=== PATIENT | female | born 1975 | race Caucasian/White ===

== ENCOUNTER 2017-02-04 22:13 | Inpatient (IN) | payer MEDICAID ==
[~2017-02-04] VITALS: Ht 142.2 cm; Wt 60.8 kg
[~2017-02-04 22:13] MED LIST: ASPI325T80 PO; ATOR40TA78 PO; CLOP75TA PO; LIPA1CAP PO; METF500T4 PO; METO25TA35 PO; PIOG15TA4 PO
[2017-02-04] MEDS ORDERED: INSU100I34 SQ (22:34)
[2017-02-04 22:44] LABS: HEMATOCRIT 40.4 % (34.6-47.8); HEMOGLOBIN 13.5 g/dL (11.7-16.4); WHITE BLOOD COUNT 10.9 x10^3/uL (3.4-10)
[2017-02-04 22:57] LABS: ASPARTATE AMINO TRANSFERASE 14 U/L (15-37); BLOOD UREA NITROGEN 20 mg/dL (7-18)
[2017-02-04] MEDS ORDERED: ONDANSETRON 2MG/ML, 2ML ONE (22:59)
[2017-02-04] MEDS ORDERED: SODIUM CHLORIDE FLUSH 10ML SYR IVF ONE (23:00)
[2017-02-04] MEDS ORDERED: LORazepam 2 MG/ML, 1ML IVPush ONE (23:00)
[2017-02-04] MEDS ORDERED: SODIUM CHLORIDE 0.9% 1,000ML IVBOLUS ONE (23:00)
[2017-02-04] MEDS ORDERED: ONDANSETRON 2MG/ML, 2ML IVPush ONE (23:00)
[2017-02-04] MEDS ORDERED: LORazepam 2 MG/ML, 1ML ONE (23:00)
[2017-02-04] MEDS ORDERED: MORPHINE SULFATE 4 MG/ML, 1ML IVPush PRN (23:00)
[2017-02-04 23:03] LABS: IS PT STATUS REG ER OR PRE ER? YES
[2017-02-04] MEDS ORDERED: ONDANSETRON 2MG/ML, 2ML IVPush PRN (23:30)
[2017-02-04] MEDS ORDERED: HYDROmorphone 1 MG/ML, 1ML IVPush PRN (23:30)
[2017-02-04] MEDS ORDERED: HYDROmorphone 1 MG/ML, 1ML ONE ×2 (23:40→23:46)
[2017-02-05] MEDS ORDERED: GLUCAGON 1 MG IM PRN
[2017-02-05] MEDS ORDERED: hydrALAzine 20 MG/ML, 1ML IVPush PRN
[2017-02-05] MEDS ORDERED: HYDROmorphone 2 MG/ML, 1ML IVPush PRN
[2017-02-05] MEDS ORDERED: DEXTROSE 4 GM TAB.CHEW PO PRN
[2017-02-05 01:00] VITALS: BP 124/83
[2017-02-05] MEDS: SODIUM CHLORIDE 0.9% 1,000 ML IV SCH ×2 (01:07→16:38)
[2017-02-05] MEDS: ATORVASTATIN 40 MG TABLET PO SCH ×2 (01:19→21:52)
[2017-02-05 01:54] VITALS: BP 124/83
[2017-02-05 06:03] LABS: IS PT STATUS REG ER OR PRE ER? NO
[2017-02-05 07:50] VITALS: BP 102/68
[2017-02-05] MEDS: PIOGLITAZONE 15 MG TABLET PO SCH (08:18)
[2017-02-05] MEDS: CLOPIDOGREL 75 MG TABLET PO SCH (08:19)
[2017-02-05] MEDS: SODIUM CHLORIDE FLUSH 10ML SYR IVF SCH ×2 (08:19→21:52)
[2017-02-05] MEDS ORDERED: ASPIRIN 325 MG TABLET PO SCH (09:00)
[2017-02-05] MEDS ORDERED: metFORMIN 500 MG TABLET PO SCH (09:00)
[2017-02-05] MEDS ORDERED: REGADENOSON 0.4 MG/5 ML SYRINGE ONE (09:16)
[2017-02-05] MEDS: ACETAMINOPHEN 325 MG TABLET PO PRN (11:57)
[2017-02-05 12:17] VITALS: BP 107/70
[2017-02-05] MEDS: METOPROLOL TARTRATE 25 MG TABLET PO SCH (15:25)
[2017-02-05] MEDS: HEPARIN 25,000 UNITS/500ML PMX 500 ML IV PRN (15:29)
[2017-02-05] MEDS ORDERED: HEPARIN 5,000 UNITS/ML, 1ML IV ONE (15:30)
[2017-02-05 20:03] VITALS: BP 99/66
[2017-02-05] MEDS: morphine SULFATE 10 MG/ML, 1ML IVPush PRN (20:30)
[2017-02-05] MEDS: INSULIN DETEMIR 100 UNITS/ML, PEN SQ-INSULIN SCH (20:50)
[2017-02-05] MEDS ORDERED: INSULIN DETEMIR 100 UNITS/ML, PEN SQ-INSULIN ONE (21:00)
[2017-02-05] MEDS ORDERED: ONDANSETRON 2MG/ML, 2ML IVPush PRN (21:00)
[2017-02-05] MEDS: HEPARIN 5,000 UNITS/ML, 1ML IV PRN (23:02)
[2017-02-06 01:57] VITALS: BP 118/82
[2017-02-06 05:21] LABS: BLOOD UREA NITROGEN 11 mg/dL (7-18)
[2017-02-06] MEDS: HEPARIN 5,000 UNITS/ML, 1ML IV PRN (05:53)
[2017-02-06] MEDS: DEXTROSE 50%, 50ML SYRINGE IVPush PRN (05:54)
[2017-02-06] MEDS: METOPROLOL TARTRATE 25 MG TABLET PO SCH ×2 (05:54→18:03)
[2017-02-06 06:00] VITALS: BP 115/74
[2017-02-06] MEDS ORDERED: GLUCAGON 1 MG IM PRN (06:00)
[2017-02-06] MEDS ORDERED: DEXTROSE 4 GM TAB.CHEW PO PRN (06:00)
[2017-02-06] MEDS ORDERED: DEXTROSE 50%, 50ML SYRINGE IVPush PRN (06:00)
[2017-02-06] MEDS: SODIUM CHLORIDE 0.9% 1,000 ML IV SCH ×2 (06:09→16:48)
[2017-02-06] MEDS: POTASSIUM CHLORIDE 40 MEQ in D5%-0.9% NACL 1,000 ML IV SCH ×2 (06:09→23:00)
[2017-02-06] MEDS ORDERED: SODIUM CHLORIDE 0.9% 1,000 ML IV SCH (08:00)
[2017-02-06] MEDS: SODIUM CHLORIDE FLUSH 10ML SYR IVF SCH ×4 (08:05→21:46)
[2017-02-06] MEDS: CLOPIDOGREL 75 MG TABLET PO SCH (08:06)
[2017-02-06] MEDS: ASPIRIN 81 MG TABLET EC PO SCH (08:06)
[2017-02-06] MEDS: PIOGLITAZONE 15 MG TABLET PO SCH (08:06)
[2017-02-06 08:34] VITALS: BP 123/76
[2017-02-06 14:02] VITALS: BP 103/68
[2017-02-06] MEDS ORDERED: FENTANYL PF 100 MCG/2ML ONE (15:40)
[2017-02-06] MEDS ORDERED: MIDAZOLAM 1 MG/ML, 5ML ONE (15:40)
[2017-02-06] MEDS ORDERED: HEPARIN 1,000 UNITS/ML, 10ML ONE (15:41)
[2017-02-06] MEDS ORDERED: TICAGRELOR 90 MG TABLET ONE (15:41)
[2017-02-06] MEDS ORDERED: BIVALIRUDIN 250 MG ONE (15:41)
[2017-02-06] MEDS ORDERED: VERAPAMIL 2.5 MG/ML, 2ML ONE (15:41)
[2017-02-06] MEDS ORDERED: LIDOCAINE 2%, 20ML ONE (15:41)
[2017-02-06] MEDS: HEPARIN 25,000 UNITS/500ML PMX 500 ML IV PRN (18:14)
[2017-02-06 19:32] VITALS: BP 129/84
[2017-02-06] MEDS: INSULIN DETEMIR 100 UNITS/ML, PEN SQ-INSULIN SCH (21:00)
[2017-02-06] MEDS: ATORVASTATIN 40 MG TABLET PO SCH (21:46)
[2017-02-07] MEDS: SODIUM CHLORIDE 0.9% 1,000 ML IV SCH ×5 (00:48→15:06)
[2017-02-07 01:34] VITALS: BP 102/65
[2017-02-07] MEDS: HEPARIN 5,000 UNITS/ML, 1ML IV PRN ×2 (01:43→20:49)
[2017-02-07 06:40] VITALS: BP 121/82
[2017-02-07] MEDS: SODIUM CHLORIDE FLUSH 10ML SYR IVF SCH ×4 (09:00→22:39)
[2017-02-07] MEDS: PIOGLITAZONE 15 MG TABLET PO SCH (09:25)
[2017-02-07] MEDS: METOPROLOL TARTRATE 25 MG TABLET PO SCH ×2 (09:25→17:32)
[2017-02-07] MEDS: ASPIRIN 81 MG TABLET EC PO SCH (09:25)
[2017-02-07] MEDS: POTASSIUM CHLORIDE 40 MEQ in D5%-0.9% NACL 1,000 ML IV SCH (12:27)
[2017-02-07 13:10] VITALS: BP 93/61
[2017-02-07 17:34] VITALS: BP 121/82
[2017-02-07 19:04] VITALS: BP 120/86
[2017-02-07] MEDS: ATORVASTATIN 40 MG TABLET PO SCH (22:39)
[2017-02-07] MEDS: INSULIN DETEMIR 100 UNITS/ML, PEN SQ-INSULIN SCH (22:39)
[2017-02-08] MEDS: HEPARIN 25,000 UNITS/500ML PMX 500 ML IV PRN (00:27)
[2017-02-08] MEDS: NS + 20MEQ KCL 1,000 ML IV SCH ×3 (00:29→18:26)
[2017-02-08 01:25] VITALS: BP 99/53
[2017-02-08] MEDS: METOPROLOL TARTRATE 25 MG TABLET PO SCH ×2 (06:24→17:08)
[2017-02-08 07:05] VITALS: BP 107/70
[2017-02-08] MEDS: SODIUM CHLORIDE FLUSH 10ML SYR IVF SCH ×4 (09:00→20:28)
[2017-02-08] MEDS: ASPIRIN 81 MG TABLET EC PO SCH (09:30)
[2017-02-08] MEDS: PIOGLITAZONE 15 MG TABLET PO SCH (09:30)
[2017-02-08 13:44] VITALS: BP 112/74
[2017-02-08] MEDS: ATORVASTATIN 40 MG TABLET PO SCH (20:24)
[2017-02-08] MEDS: ACETAMINOPHEN 325 MG TABLET PO PRN (20:24)
[2017-02-08] MEDS: INSULIN DETEMIR 100 UNITS/ML, PEN SQ-INSULIN SCH (20:36)
[2017-02-08 21:54] VITALS: BP 92/64
[2017-02-09] MEDS: HEPARIN 25,000 UNITS/500ML PMX 500 ML IV PRN (02:11)
[2017-02-09] MEDS: DEXTROSE 50%, 50ML SYRINGE IVPush PRN (02:19)
[2017-02-09 02:30] VITALS: BP 104/69
[2017-02-09] MEDS: morphine SULFATE 10 MG/ML, 1ML IVPush PRN ×5 (03:50→19:15)
[2017-02-09] MEDS ORDERED: NITROGLYCERIN 0.4 MG/SPRAY SL PRN (04:00)
[2017-02-09] MEDS ORDERED: NITROGLYCERIN 0.4 MG BOTTLE (25 TABS) SL PRN (04:00)
[2017-02-09] MEDS ORDERED: NITROGLYCERIN/D5W PMX 250 ML IV SCH (04:35)
[2017-02-09] MEDS: METOPROLOL TARTRATE 25 MG TABLET PO SCH (06:22)
[2017-02-09] MEDS: NS + 20MEQ KCL 1,000 ML IV SCH (06:23)
[2017-02-09] MEDS ORDERED: ALBUMIN HUMAN 5% 500 ML IV PRN (06:30)
[2017-02-09 06:44] LABS: HEMATOCRIT 39.1 % (34.6-47.8); HEMOGLOBIN 13.2 g/dL (11.7-16.4)
[2017-02-09 06:53] LABS: BLOOD UREA NITROGEN 10 mg/dL (7-18)
[2017-02-09] MEDS ORDERED: EPINEPHRINE 2 MG in SODIUM CHLORIDE 0.9% 248 ML IV SCH (07:30)
[2017-02-09] MEDS ORDERED: MANNITOL PMX 20% 500 ML IVPB PRN (07:30)
[2017-02-09] MEDS ORDERED: REGULAR INSULIN 62.5 UNITS in SODIUM CHLORIDE 0.9% 249.375 ML IV PRN ×2 (07:30→13:00)
[2017-02-09] MEDS ORDERED: VANCOMYCIN PMX 1GM/200ML 200 ML IV PRN (07:30)
[2017-02-09] MEDS ORDERED: POTASSIUM CHLORIDE 80 MEQ, SODIUM BICARBONATE 8.4% 10 MEQ, MAGNESIUM SULFATE 0.5 GM, LI... IV PRN (07:30)
[2017-02-09] MEDS ORDERED: CEFUROXIME 1.5 GM in SODIUM CHLORIDE 0.9% 50 ML IVPB PRN (07:30)
[2017-02-09] MEDS ORDERED: PHENYLEPHRINE 10 MG in SODIUM CHLORIDE 0.9% 249 ML IV PRN (07:30)
[2017-02-09] MEDS ORDERED: DEXMEDETOMIDINE 200 MCG in SODIUM CHLORIDE 0.9% 48 ML IV SCH (07:30)
[2017-02-09] MEDS ORDERED: INSULIN ASPART 100 UNITS/ML, PEN SQ-INSULIN SCH (08:00)
[2017-02-09] MEDS ORDERED: PAPAVERINE 30 MG/ML, 2ML ONE (08:05)
[2017-02-09] MEDS ORDERED: HEPARIN 1,000 UNITS/ML, 10ML ONE (08:05)
[2017-02-09] MEDS ORDERED: SODIUM CHLORIDE FLUSH 10ML SYR IVF SCH ×2 (09:00→21:00)
[2017-02-09] MEDS ORDERED: MUPIROCIN OINT 2%, 22GM TP SCH (09:00)
[2017-02-09] MEDS: SODIUM CHLORIDE FLUSH 10ML SYR IVF SCH ×2 (09:00→09:50)
[2017-02-09] MEDS: ASPIRIN 81 MG TABLET EC PO SCH (09:00)
[2017-02-09] MEDS: PIOGLITAZONE 15 MG TABLET PO SCH (09:00)
[2017-02-09] MEDS ORDERED: MIDAZOLAM 10MG/2 ML ONE (09:19)
[2017-02-09] MEDS ORDERED: FENTANYL PF 1000 MCG/20ML ONE (09:19)
[2017-02-09] MEDS ORDERED: PROPOFOL 10 MG/ML, 20ML ONE (09:27)
[2017-02-09] MEDS ORDERED: TRANEXAMIC ACID 100 MG/ML, 10ML ONE ×6 (09:27→09:28)
[2017-02-09] MEDS ORDERED: ROCURONIUM 10 MG/ML,10ML ONE (09:28)
[2017-02-09] MEDS: CHLORHEXIDINE MOUTHWASH 15 ML UDC MM PRN (09:41)
[2017-02-09 10:11] VITALS: BP_SYST 111; BP_SYST 123; BP_DIAS 63; BP_DIAS 68
[2017-02-09] MEDS ORDERED: HEPARIN 1,000 UNITS/ML, 10ML IV ONE (11:00)
[2017-02-09] MEDS ORDERED: PAPAVERINE 30 MG/ML, 2ML IVPush ONE (11:01)
[2017-02-09] MEDS ORDERED: PROTAMINE SULFATE 10 MG/ML, 25ML ONE (11:49)
[2017-02-09] MEDS ORDERED: CALCIUM CHLORIDE 10%, 10ML SYR ONE (12:25)
[2017-02-09] MEDS ORDERED: LACTATED RINGERS 1,000 ML IV PRN (13:00)
[2017-02-09] MEDS ORDERED: ACETAMINOPHEN 650 MG SUPP PR PRN (13:00)
[2017-02-09] MEDS ORDERED: DEXTROSE 4 GM TAB.CHEW PO PRN (13:00)
[2017-02-09] MEDS ORDERED: PROCHLORPERAZINE 5 MG/ML, 2ML IVPush PRN (13:00)
[2017-02-09] MEDS ORDERED: ACETAMINOPHEN 325 MG TABLET PO PRN (13:00)
[2017-02-09] MEDS ORDERED: ONDANSETRON 2MG/ML, 2ML IVPush PRN (13:00)
[2017-02-09] MEDS ORDERED: VASOPRESSIN 50 UNIT in SODIUM CHLORIDE 0.9% 250 ML IV PRN (13:00)
[2017-02-09] MEDS ORDERED: DOBUTAMINE 250 MG in SODIUM CHLORIDE 0.9% 230 ML IV PRN (13:00)
[2017-02-09] MEDS ORDERED: SODIUM BICARB 8.4%, 50ML SYRINGE IV PRN (13:00)
[2017-02-09] MEDS ORDERED: VANCOMYCIN 900 MG in SODIUM CHLORIDE 0.9% 250 ML IVPB SCH (13:00)
[2017-02-09] MEDS ORDERED: HYDROcodone/APAP 5/325 TABLET PO PRN (13:00)
[2017-02-09] MEDS ORDERED: NITROGLYCERIN/D5W PMX 240 ML IV PRN (13:00)
[2017-02-09] MEDS ORDERED: DEXTROSE 50%, 50ML SYRINGE IVPush PRN (13:00)
[2017-02-09] MEDS ORDERED: BISACODYL 10 MG SUPP PR PRN (13:00)
[2017-02-09] MEDS ORDERED: DEXMEDETOMIDINE 200 MCG in SODIUM CHLORIDE 0.9% 48 ML IV PRN (13:00)
[2017-02-09] MEDS ORDERED: MIDAZOLAM 1 MG/ML, 5ML IVPush PRN (13:00)
[2017-02-09] MEDS ORDERED: GLUCAGON 1 MG IM PRN (13:00)
[2017-02-09] MEDS ORDERED: EPINEPHRINE 2 MG in SODIUM CHLORIDE 0.9% 248 ML IV PRN (13:00)
[2017-02-09] MEDS ORDERED: SODIUM BICARB 8.4%, 50ML SYRINGE ONE (13:25)
[2017-02-09] MEDS ORDERED: LIDOCAINE 2% 100MG/5ML SYRINGE ONE (13:25)
[2017-02-09] MEDS ORDERED: HEPARIN 1,000 UNITS/ML, 30ML ONE (13:25)
[2017-02-09] MEDS ORDERED: ALBUMIN HUMAN 25% 50 ML ONE (13:26)
[2017-02-09 13:37] LABS: ABG COLLECTION SITE ARTERIAL LINE
[2017-02-09] MEDS: MAGNESIUM SULFATE 1 GM in SODIUM CHLORIDE 0.9% 50 ML IVPB SCH (14:21)
[2017-02-09] MEDS: DOCUSATE 100 MG CAPSULE PO SCH ×2 (14:23→22:14)
[2017-02-09] MEDS: KSCALE TO 4.5 IV SCH ×2 (14:24→19:00)
[2017-02-09] MEDS: CHLORHEXIDINE MOUTHWASH 15 ML UDC MM SCH (14:24)
[2017-02-09] MEDS ORDERED: POTASSIUM CHLORIDE PMX 100 ML IV ONE (15:00)
[2017-02-09] MEDS ORDERED: METOPROLOL 1 MG/ML, 5ML ONE (15:13)
[2017-02-09] MEDS ORDERED: METOPROLOL 1 MG/ML, 5ML IVPush ONE (15:30)
[2017-02-09] MEDS: INSULIN ASPART 100 UNITS/ML, PEN SQ-INSULIN SCH ×2 (16:00→21:00)
[2017-02-09] MEDS: OXYcodone IR 5MG TABLET PO PRN ×2 (18:05→19:27)
[2017-02-09 19:03] LABS: HEMATOCRIT 31.1 % (34.6-47.8); HEMOGLOBIN 10.4 g/dL (11.7-16.4)
[2017-02-09] MEDS: VANCOMYCIN PMX 1GM/200ML 200 ML IV SCH (19:28)
[2017-02-09] MEDS: CEFUROXIME 1.5 GM in SODIUM CHLORIDE 0.9% 50 ML IVPB SCH (20:05)
[2017-02-09] MEDS: INSULIN DETEMIR 100 UNITS/ML, PEN SQ-INSULIN SCH (22:13)
[2017-02-09] MEDS: ATORVASTATIN 40 MG TABLET PO SCH (22:14)
[2017-02-09] MEDS: MUPIROCIN OINT 2%, 22GM NAS SCH (22:15)
[2017-02-10] MEDS ORDERED: ESMOLOL/NS PMX 250 ML IV PRN
[2017-02-10] MEDS: KSCALE TO 4.5 IV SCH ×2 (01:00→07:00)
[2017-02-10] MEDS: CHLORHEXIDINE MOUTHWASH 15 ML UDC MM SCH ×2 (01:00→13:49)
[2017-02-10] MEDS: HYDROcodone/APAP 10/325 MG TABLET PO PRN ×3 (01:43→18:17)
[2017-02-10] MEDS: CHLORHEXIDINE MOUTHWASH 15 ML UDC MM PRN (01:46)
[2017-02-10 01:58] LABS: HEMATOCRIT 30.6 % (34.6-47.8); HEMOGLOBIN 10.1 g/dL (11.7-16.4)
[2017-02-10] MEDS: DEXTROSE 50%, 50ML SYRINGE IVPush PRN (02:47)
[2017-02-10 05:31] LABS: ABG COLLECTION SITE ARTERIAL LINE
[2017-02-10 05:38] LABS: HEMATOCRIT 30.7 % (34.6-47.8); HEMOGLOBIN 10.3 g/dL (11.7-16.4); WHITE BLOOD COUNT 17.5 x10^3/uL (3.4-10)
[2017-02-10 05:46] LABS: BLOOD UREA NITROGEN 9 mg/dL (7-18)
[2017-02-10] MEDS ORDERED: VANCOMYCIN 1,000 MG in SODIUM CHLORIDE 0.9% 250 ML IVPB ONE (07:30)
[2017-02-10] MEDS ORDERED: CEFUROXIME 1.5 GM in SODIUM CHLORIDE 0.9% 50 ML IVPB ONE (07:30)
[2017-02-10] MEDS ORDERED: ONDANSETRON ODT 4 MG PO PRN (08:00)
[2017-02-10] MEDS ORDERED: PROCHLORPERAZINE 5 MG/ML, 2ML IM PRN (08:00)
[2017-02-10] MEDS ORDERED: MAGNESIUM HYDROXIDE 8%, 30ML UDC PO PRN (08:00)
[2017-02-10] MEDS: VANCOMYCIN PMX 1GM/200ML 200 ML IV SCH (08:48)
[2017-02-10] MEDS: CEFUROXIME 1.5 GM in SODIUM CHLORIDE 0.9% 50 ML IVPB SCH (08:56)
[2017-02-10] MEDS: OXYcodone IR 5MG TABLET PO PRN ×5 (08:57→21:04)
[2017-02-10] MEDS: MUPIROCIN OINT 2%, 22GM NAS SCH ×2 (08:58→21:16)
[2017-02-10] MEDS: PIOGLITAZONE 15 MG TABLET PO SCH (08:59)
[2017-02-10] MEDS: ASPIRIN 81 MG TABLET EC PO SCH (08:59)
[2017-02-10] MEDS: METOPROLOL TARTRATE 25 MG TABLET PO/NG SCH ×2 (08:59→21:04)
[2017-02-10] MEDS: CEFTRIAXONE PMX 1GM/50ML 50 ML IV SCH (11:25)
[2017-02-10] MEDS: MAGNESIUM SULFATE 1 GM in SODIUM CHLORIDE 0.9% 50 ML IVPB SCH (13:49)
[2017-02-10] MEDS: INSULIN ASPART 100 UNITS/ML, PEN SQ-INSULIN SCH ×2 (16:19→17:45)
[2017-02-10 18:13] VITALS: BP 105/70
[2017-02-10 19:40] VITALS: BP 100/67
[2017-02-10] MEDS: ATORVASTATIN 40 MG TABLET PO SCH (21:03)
[2017-02-10] MEDS: SODIUM CHLORIDE FLUSH 10ML SYR IVF SCH (21:05)
[2017-02-10] MEDS: INSULIN DETEMIR 100 UNITS/ML, PEN SQ-INSULIN SCH (21:16)
[2017-02-10] MEDS ORDERED: VASOPRESSIN 50 UNIT in SODIUM CHLORIDE 0.9% 247.5 ML IV PRN (23:00)
[2017-02-11] MEDS: HYDROcodone/APAP 10/325 MG TABLET PO PRN ×4 (02:11→20:57)
[2017-02-11 02:15] VITALS: BP 99/66
[2017-02-11] MEDS: CHLORHEXIDINE MOUTHWASH 15 ML UDC MM SCH ×3 (02:23→20:57)
[2017-02-11 02:44] LABS: HEMATOCRIT 29.1 % (34.6-47.8); HEMOGLOBIN 9.9 g/dL (11.7-16.4); WHITE BLOOD COUNT 14.9 x10^3/uL (3.4-10)
[2017-02-11 02:54] LABS: BLOOD UREA NITROGEN 13 mg/dL (7-18)
[2017-02-11 02:57] LABS: DIFF TOTAL CELLS COUNTED 100 CELL DIFF
[2017-02-11 02:58] LABS: VERIFY COUNTS? YES
[2017-02-11] MEDS: INSULIN ASPART 100 UNITS/ML, PEN SQ-INSULIN SCH ×4 (07:00→20:58)
[2017-02-11 07:11] VITALS: BP 100/68
[2017-02-11] MEDS: SODIUM CHLORIDE FLUSH 10ML SYR IVF SCH ×2 (09:00→20:57)
[2017-02-11] MEDS ORDERED: FUROSEMIDE 20 MG/2 ML IV SCH (09:00)
[2017-02-11] MEDS: ASPIRIN 81 MG TABLET EC PO SCH (09:12)
[2017-02-11] MEDS: MUPIROCIN OINT 2%, 22GM NAS SCH ×2 (09:12→20:58)
[2017-02-11] MEDS: OXYcodone IR 5MG TABLET PO PRN ×3 (09:12→23:26)
[2017-02-11] MEDS: METOPROLOL TARTRATE 25 MG TABLET PO/NG SCH ×2 (09:12→20:57)
[2017-02-11] MEDS: ENOXAPARIN 40 MG/0.4 ML SQ SCH (09:12)
[2017-02-11] MEDS: PIOGLITAZONE 15 MG TABLET PO SCH (09:12)
[2017-02-11] MEDS: POTASSIUM CHLORIDE 10 MEQ TABLET.ER PO SCH (09:12)
[2017-02-11] MEDS: CEFTRIAXONE PMX 1GM/50ML 50 ML IV SCH (12:24)
[2017-02-11] MEDS: FUROSEMIDE 20 MG TABLET PO SCH (12:24)
[2017-02-11] MEDS: MAGNESIUM SULFATE 1 GM in SODIUM CHLORIDE 0.9% 50 ML IVPB SCH (13:20)
[2017-02-11 13:23] VITALS: BP 95/65
[2017-02-11 20:11] VITALS: BP 102/68
[2017-02-11] MEDS: INSULIN DETEMIR 100 UNITS/ML, PEN SQ-INSULIN SCH (20:57)
[2017-02-11] MEDS: ATORVASTATIN 40 MG TABLET PO SCH (20:57)
[2017-02-12 01:02] VITALS: BP 95/61
[2017-02-12] MEDS: HYDROcodone/APAP 10/325 MG TABLET PO PRN ×4 (04:13→20:24)
[2017-02-12 05:31] LABS: BLOOD UREA NITROGEN 10 mg/dL (7-18)
[2017-02-12 06:59] VITALS: BP 100/68
[2017-02-12] MEDS: INSULIN ASPART 100 UNITS/ML, PEN SQ-INSULIN SCH ×4 (07:00→20:28)
[2017-02-12] MEDS: CHLORHEXIDINE MOUTHWASH 15 ML UDC MM SCH ×2 (07:40→20:22)
[2017-02-12] MEDS: POTASSIUM CHLORIDE 10 MEQ TABLET.ER PO SCH ×2 (07:55→16:34)
[2017-02-12] MEDS: BISACODYL 5 MG EC TABLET PO PRN (07:55)
[2017-02-12] MEDS: PIOGLITAZONE 15 MG TABLET PO SCH (07:55)
[2017-02-12] MEDS: ASPIRIN 81 MG TABLET EC PO SCH (07:55)
[2017-02-12] MEDS: CLOPIDOGREL 75 MG TABLET PO SCH (07:55)
[2017-02-12] MEDS: SODIUM CHLORIDE FLUSH 10ML SYR IVF SCH ×2 (07:55→20:23)
[2017-02-12] MEDS: MUPIROCIN OINT 2%, 22GM NAS SCH ×2 (07:55→20:22)
[2017-02-12] MEDS: FUROSEMIDE 20 MG TABLET PO SCH (07:56)
[2017-02-12] MEDS: METOPROLOL TARTRATE 25 MG TABLET PO/NG SCH ×2 (07:56→20:22)
[2017-02-12] MEDS: ENOXAPARIN 40 MG/0.4 ML SQ SCH (07:56)
[2017-02-12] MEDS ORDERED: POTASSIUM CHLORIDE 20 MEQ TAB.ER.PRT PO ONE (09:00)
[2017-02-12 15:13] VITALS: BP 119/84
[2017-02-12] MEDS: FUROSEMIDE 20 MG/2 ML IV SCH (16:34)
[2017-02-12 19:15] VITALS: BP 113/78
[2017-02-12] MEDS: ATORVASTATIN 40 MG TABLET PO SCH (20:22)
[2017-02-12] MEDS: INSULIN DETEMIR 100 UNITS/ML, PEN SQ-INSULIN SCH (20:27)
[2017-02-13 00:28] VITALS: BP 97/65
[2017-02-13] MEDS ORDERED: DEXTROSE 50%, 50ML SYRINGE ONE (00:46)
[2017-02-13] MEDS ORDERED: DEXTROSE 50%, 50ML SYRINGE IVPush PRN (01:00)
[2017-02-13] MEDS ORDERED: GLUCAGON 1 MG IM PRN (01:00)
[2017-02-13] MEDS ORDERED: DEXTROSE 4 GM TAB.CHEW PO PRN (01:00)
[2017-02-13 02:27] VITALS: BP 95/68
[2017-02-13] MEDS: HYDROcodone/APAP 10/325 MG TABLET PO PRN ×3 (03:54→17:21)
[2017-02-13 05:19] LABS: HEMATOCRIT 28.9 % (34.6-47.8); HEMOGLOBIN 9.8 g/dL (11.7-16.4); WHITE BLOOD COUNT 8.5 x10^3/uL (3.4-10)
[2017-02-13 05:32] LABS: BLOOD UREA NITROGEN 11 mg/dL (7-18)
[2017-02-13 08:02] VITALS: BP 111/76
[2017-02-13] MEDS: INSULIN ASPART 100 UNITS/ML, PEN SQ-INSULIN SCH ×4 (08:17→20:37)
[2017-02-13] MEDS: ENOXAPARIN 40 MG/0.4 ML SQ SCH (08:30)
[2017-02-13] MEDS: FUROSEMIDE 20 MG/2 ML IV SCH ×2 (08:30→17:22)
[2017-02-13] MEDS: METOPROLOL TARTRATE 25 MG TABLET PO/NG SCH ×2 (08:30→17:22)
[2017-02-13] MEDS: PIOGLITAZONE 15 MG TABLET PO SCH (08:31)
[2017-02-13] MEDS: CHLORHEXIDINE MOUTHWASH 15 ML UDC MM SCH ×2 (08:31→20:20)
[2017-02-13] MEDS: POTASSIUM CHLORIDE 10 MEQ TABLET.ER PO SCH ×2 (08:31→17:21)
[2017-02-13] MEDS: MUPIROCIN OINT 2%, 22GM NAS SCH ×2 (08:31→20:24)
[2017-02-13] MEDS: ASPIRIN 81 MG TABLET EC PO SCH (08:31)
[2017-02-13] MEDS: SODIUM CHLORIDE FLUSH 10ML SYR IVF SCH ×4 (08:31→20:24)
[2017-02-13] MEDS: CLOPIDOGREL 75 MG TABLET PO SCH (08:31)
[2017-02-13] MEDS ORDERED: LIDOCAINE 1%, 20ML ONE (09:16)
[2017-02-13] MEDS: OXYcodone IR 5MG TABLET PO PRN ×2 (11:54→20:35)
[2017-02-13 13:23] VITALS: BP 111/75
[2017-02-13 16:56] VITALS: BP 106/74
[2017-02-13] MEDS: ATORVASTATIN 40 MG TABLET PO SCH (20:24)
[2017-02-13 20:30] VITALS: BP 95/67
[2017-02-14 00:05] VITALS: BP 104/72
[2017-02-14] MEDS: METOPROLOL TARTRATE 25 MG TABLET PO/NG SCH ×4 (00:09→21:00)
[2017-02-14] MEDS: HYDROcodone/APAP 10/325 MG TABLET PO PRN ×3 (06:14→21:15)
[2017-02-14 06:39] LABS: BLOOD UREA NITROGEN 13 mg/dL (7-18)
[2017-02-14] MEDS: INSULIN ASPART 100 UNITS/ML, PEN SQ-INSULIN SCH ×5 (07:22→21:15)
[2017-02-14 08:43] VITALS: BP 104/70
[2017-02-14] MEDS ORDERED: HYDR-3307 PO (09:20)
[2017-02-14] MEDS ORDERED: FURO20TA3 PO (09:20)
[2017-02-14] MEDS ORDERED: POTA10TA5 PO (09:20)
[2017-02-14] MEDS ORDERED: METO25TA35 PO/NG (09:20)
[2017-02-14] MEDS ORDERED: SODIUM CHLORIDE 0.9%, 500ML IVBOLUS ONE (09:30)
[2017-02-14] MEDS: PIOGLITAZONE 15 MG TABLET PO SCH (09:33)
[2017-02-14] MEDS: SODIUM CHLORIDE FLUSH 10ML SYR IVF SCH ×4 (09:33→21:15)
[2017-02-14] MEDS: POTASSIUM CHLORIDE 10 MEQ TABLET.ER PO SCH ×2 (09:33→17:14)
[2017-02-14] MEDS: ASPIRIN 81 MG TABLET EC PO SCH (09:33)
[2017-02-14] MEDS: CLOPIDOGREL 75 MG TABLET PO SCH (09:33)
[2017-02-14] MEDS: MUPIROCIN OINT 2%, 22GM NAS SCH (09:33)
[2017-02-14] MEDS: ENOXAPARIN 40 MG/0.4 ML SQ SCH (09:34)
[2017-02-14] MEDS: OXYcodone IR 5MG TABLET PO PRN ×2 (09:34→17:26)
[2017-02-14 12:40] VITALS: BP 104/71
[2017-02-14 20:26] VITALS: BP 103/71
[2017-02-14] MEDS ORDERED: ATORVASTATIN 40 MG TABLET PO SCH (21:00)
[2017-02-14 21:14] VITALS: BP 95/65
[2017-02-15 01:28] VITALS: BP 98/51
[2017-02-15] MEDS: OXYcodone IR 5MG TABLET PO PRN ×2 (05:03→12:31)
[2017-02-15] MEDS ORDERED: METOPROLOL SUCCINATE 50 MG TAB.ER.24H PO SCH (06:00)
[2017-02-15 06:13] VITALS: BP 111/77
[2017-02-15 06:32] LABS: BLOOD UREA NITROGEN 15 mg/dL (7-18)
[2017-02-15 07:33] VITALS: BP 109/74
[2017-02-15] MEDS: SODIUM CHLORIDE FLUSH 10ML SYR IVF SCH ×2 (09:00→09:08)
[2017-02-15] MEDS: HYDROcodone/APAP 10/325 MG TABLET PO PRN (09:05)
[2017-02-15] MEDS: ENOXAPARIN 40 MG/0.4 ML SQ SCH (09:07)
[2017-02-15] MEDS: INSULIN ASPART 100 UNITS/ML, PEN SQ-INSULIN SCH ×2 (09:07→12:37)
[2017-02-15] MEDS: POTASSIUM CHLORIDE 10 MEQ TABLET.ER PO SCH (09:08)
[2017-02-15] MEDS: CLOPIDOGREL 75 MG TABLET PO SCH (09:08)
[2017-02-15] MEDS: PIOGLITAZONE 15 MG TABLET PO SCH (09:08)
[2017-02-15] MEDS: ASPIRIN 81 MG TABLET EC PO SCH (09:08)
[2017-02-15] MEDS: BISACODYL 5 MG EC TABLET PO PRN (09:15)
[2017-02-15 12:54] VITALS: BP 100/68
[2017-02-15] MEDS ORDERED: OXYC5CAP2 PO (13:37)
== END 2017-02-15 13:50 | disposition home or self-care (01) | DRG 235 ==
LOC: ED 22:46 → EDIP 23:29 → 5SO 02-05 00:49 → CSU 02-09 05:03 → 5SO 02-10 18:28 → DCLOUNGE 02-15 13:22
PROVIDERS: ADMIT Hospitalist; ATTEND Hospitalist
PROC: 021009W Bypass Coronary Artery, One Artery from Aorta with Autologous Venous Tissue, Open Approach (ICD-10-PCS; 2017-02-09)
PROC: 5A1221Z Performance of Cardiac Output, Continuous (ICD-10-PCS; 2017-02-09)
PROC: 02100Z9 Bypass Coronary Artery, One Artery from Left Internal Mammary, Open Approach (ICD-10-PCS; principal; 2017-02-09 10:00)
DX: T82.855A Stenosis of coronary artery stent, initial encounter (principal); J96.00 Acute respiratory failure, unspecified whether with hypoxia or hypercapnia; J90 Pleural effusion, not elsewhere classified; D72.829 Elevated white blood cell count, unspecified; I25.110 Atherosclerotic heart disease of native coronary artery with unstable angina pectoris; E11.9 Type 2 diabetes mellitus without complications; J81.1 Chronic pulmonary edema; J98.11 Atelectasis; E78.5 Hyperlipidemia, unspecified; I10 Essential (primary) hypertension; Y83.1 Surgical operation with implant of artificial internal device as the cause of abnormal reaction of the patient, or of later complication, without mention of misadventure at the time of the procedure; Z82.49 Family history of ischemic heart disease and other diseases of the circulatory system; Z79.4 Long term (current) use of insulin; Z87.891 Personal history of nicotine dependence; Z83.3 Family history of diabetes mellitus; I25.2 Old myocardial infarction; Z93.2 Ileostomy status
CPT/HCPCS: 32555; 36415; 36600; 71010; 71020; 78452; 80048; 80053; 80061; 81001; 82040; 82330; 82800; 82803; 82810; 82947; 82962; 83036; 83690; 83735; 84100; 84132; 84295; 84484; 85014; 85018; 85025; 85049; 85347; 85379; 85384; 85520; 85576; 85610; 85730; 86850; 86900; 86923; 87081; 93005; 93017; 93306; 93312; 93321; 93325; 93458; 93571; 93880; 94002; 94150; 96374; 96375; 99156; 99157; C1760; C1769; C1894; J0583; J0696; J0697; J1170; J1644; J1650; J1815; J2250; J2405; J2704; J2720; J2785; J3010; J3370; J3475; J3480; J3490; J7042; P9045; P9047; A9502; C1751; C1887; C9898; J0171; J1940; J2060; J2270; J2370; J2440; J7030; J7040; J7050; Q9967

== ENCOUNTER → 2017-11-23 | Outpatient (CLI) | payer MEDICAID ==
[~2017-11-23] MED LIST changes: +FURO20TA3 PO; +HYDR-3307 PO; +INSU100I34 SQ; +METF500T17 PO; -METF500T4 PO; +METO25TA35 PO/NG; +OXYC5CAP2 PO; +POTA10TA5 PO
== END | disposition home or self-care (01) ==
LOC: CFH 09:42
PROVIDERS: ATTEND Internal Medicine Cardiovascular Disease
DX: I34.0 Nonrheumatic mitral (valve) insufficiency (principal); E11.9 Type 2 diabetes mellitus without complications
CPT/HCPCS: 93306

== ENCOUNTER 2018-01-31 09:49 | Emergency (ER) | payer MEDICAID ==
[2018-01-31] MEDS ORDERED: ONDANSETRON 2MG/ML, 2ML ONE (10:18)
[2018-01-31] MEDS ORDERED: FAMOTIDINE 20 MG/2 ML ONE (10:19)
[2018-01-31] MEDS ORDERED: ONDANSETRON 2MG/ML, 2ML IVPush ONE (10:30)
[2018-01-31] MEDS ORDERED: FAMOTIDINE 20 MG/2 ML IVP ONE (10:30)
[2018-01-31] MEDS ORDERED: SODIUM CHLORIDE 0.9% 1,000ML IVBOLUS ONE ×2 (10:30→13:00)
[2018-01-31 10:34] LABS: BASOPHILS # (AUTO) 0.05 x10^3/uL (0-0.1); BASOPHILS % (AUTO) 1 % (0-1); EOSINOPHILS # (AUTO) 0.19 x10^3/uL (0-0.4); EOSINOPHILS % (AUTO) 3 % (1-7); LYMPHOCYTES # (AUTO) 1.86 x10^3/uL (1-3.4); LYMPHOCYTES % (AUTO) 25 % (22-44); MD NO; MEAN CORPUSCULAR HEMOGLOBIN 29.1 pg (27.0-34.8); MEAN CORPUSCULAR HGB CONC 33.1 g/dL (32.4-35.8); MEAN PLATELET VOLUME 9.8 fL (7.4-10.4); MONOCYTES # (AUTO) 0.86 x10^3/uL (0.2-0.8); MONOCYTES % (AUTO) 12 % (2-9); NEUTROPHILS # (AUTO) 4.42 x10^3/uL (1.8-6.8); NEUTROPHILS % (AUTO) 60 % (42-75); PLATELET COUNT 270 x10^3/uL (130-400); RED BLOOD COUNT 5.48 x10^6/uL (3.82-5.3); RED CELL DISTRIBUTION WIDTH 13.6 % (9.6-15.2)
[2018-01-31 10:45] LABS: ALANINE AMINOTRANSFERASE 23 U/L (12-78); ALBUMIN 3.4 g/dL (3.4-5.0); ANION GAP 10 mmol/L (5-15); CALCIUM 8.7 mg/dL (8.5-10.1); CHLORIDE 110 mmol/L (98-107)
[2018-01-31 10:51] LABS: ALKALINE PHOSPHATASE 129 U/L (45-117); BILIRUBIN,TOTAL 1.3 mg/dL (0.2-1.0); TOTAL PROTEIN 8.2 g/dL (6.4-8.2)
[2018-01-31 11:31] LABS: ACETONE, SERUM Small (20mg/dL) mg/dL (Negative)
[2018-01-31 12:05] LABS: MICROSCOPIC AUTO
[2018-01-31 12:14] LABS: CULTURE INDICATED? NO
[2018-01-31 14:17] VITALS: BP 144/75
== END 2018-01-31 14:32 | disposition home or self-care (01) ==
LOC: ED 10:47
DX: R11.2 Nausea with vomiting, unspecified (principal); R10.9 Unspecified abdominal pain; E11.9 Type 2 diabetes mellitus without complications
CPT/HCPCS: 36415; 80053; 81001; 82010; 82800; 83690; 85025; 93005; 96361; 96374; 96375; 99284; J2405; J3490; J7030

== ENCOUNTER 2018-05-02 20:40 | Inpatient (IN) | payer MEDICAID ==
[~2018-05-02] VITALS: Ht 142.2 cm; Wt 63.1 kg
[2018-05-02] MEDS ORDERED: IBUPROFEN 200 MG TABLET ONE (21:10)
--- NOTE | 2018-05-02 21:12 | NUR ---
MOTRIN GIVEN IN TRIAGE
[2018-05-02] MEDS ORDERED: IBUPROFEN 200 MG TABLET PO ONE (21:30)
--- NOTE | 2018-05-02 21:50 | NUR ---
PT ON HEART MONITOR, BP CUFF, PULSE OX. PT STATES COUGH ONSET THIS AFTERNOON, CHEST TIGHTNESS WITH COUGH. PT REPORTS OF THREE FAMILY MEMBERS DX WITH FLU IN PAST TWO DAYS WITH ONE HOSPITALIZED FOR FLU AND PNEUMONIA. PT WITH HX OF CAD AND DM. PT STATES SHE HASN'T CHECKED BS IN SEVERAL DAYS. FS GLUCOSE COMPLETED AT BS. IV STARTED, LABS DRAWN WITH START INCLUDING BC X 1. PT ST ON MONITOR, RATE 140S, EKG COMPLETED IN TRIAGE. LS CTA, DIMINISHED THROUGHOUT. IVF STARTED FOR FEVER AND TACHYCARDIA. CALL LIGHT WITHIN REACH, FAMILY AT BS. Addendum: 05/02/18 at 2206 by VAUGHN FLU SWAB COLLECTED/ORDERED/SENT TO LAB.
[2018-05-02] MEDS ORDERED: CEFTRIAXONE PMX 1GM/50ML 50 ML IV ONE (22:30)
[2018-05-02] MEDS ORDERED: SODIUM CHLORIDE 0.9% 1,000ML IVBOLUS ONE ×2 (22:30→23:30)
[2018-05-02] MEDS ORDERED: AZITHROMYCIN 500 MG TABLET PO ONE (22:30)
[2018-05-02 22:37] LABS: RAPID INFLUENZA A Negative (Negative); RAPID INFLUENZA B Negative (Negative)
--- NOTE | 2018-05-02 22:56 | NUR ---
DRIER FEEDER [address] PCXR COMPLETED. CONTINUE TO MONITOR AND AWAIT RESULTS.
[2018-05-02] MEDS ORDERED: AZITHROMYCIN 250 MG TABLET ONE (23:03)
[2018-05-02] MEDS ORDERED: CEFTRIAXONE PMX 1GM/50ML 50 ML ONE (23:03)
[2018-05-02 23:08] LABS: BASOPHILS # (AUTO) 0.05 x10^3/uL (0-0.1); BASOPHILS % (AUTO) 1 % (0-1); EOSINOPHILS # (AUTO) 0.14 x10^3/uL (0-0.4); EOSINOPHILS % (AUTO) 1 % (1-7); LYMPHOCYTES % (AUTO) 8 % (22-44); MD NO; MEAN CORPUSCULAR HEMOGLOBIN 29.7 pg (27.0-34.8); MEAN CORPUSCULAR HGB CONC 33.1 g/dL (32.4-35.8); MEAN CORPUSCULAR VOLUME 89.7 fL (80-100); MEAN PLATELET VOLUME 9.6 fL (7.4-10.4); MONOCYTES # (AUTO) 1.28 x10^3/uL (0.2-0.8); MONOCYTES % (AUTO) 13 % (2-9); NEUTROPHILS # (AUTO) 7.94 x10^3/uL (1.8-6.8); NEUTROPHILS % (AUTO) 78 % (42-75); PLATELET COUNT 251 x10^3/uL (130-400); RED BLOOD COUNT 4.73 x10^6/uL (3.82-5.3); RED CELL DISTRIBUTION WIDTH 14.2 % (9.6-15.2)
[2018-05-02 23:14] LABS: ALBUMIN 3.9 g/dL (3.4-5.0); ANION GAP 8 mmol/L (5-15); CALCIUM 8.7 mg/dL (8.5-10.1); CHLORIDE 110 mmol/L (98-107); CREATININE 0.93 mg/dL (0.55-1.02)
[2018-05-02 23:18] LABS: TROPONIN I < 0.015 ng/mL (0.000-0.045)
[2018-05-02] MEDS ORDERED: RAMI2.5C2 PO (23:29)
[2018-05-02] MEDS ORDERED: INSU100V34 SC (23:29)
[2018-05-02] MEDS ORDERED: EZET10TA18 PO (23:29)
--- NOTE | 2018-05-02 23:31 | NUR ---
ANTIBIOTICS GIVEN PER ERP ORDER. 2ND LITER NS INFUSING. URINE COLLECTED/SENT TO LAB. VS UPDATED IN COMPUTER.
[2018-05-02 23:37] LABS: MICROSCOPIC NOT IND
[2018-05-02 23:52] LABS: CULTURE INDICATED? NO
--- NOTE | 2018-05-03 00:53 | NUR ---
REPORT TO ANGIE AMATO, TRANSFER OF CARE AT THIS TIME.
[2018-05-03 01:41] VITALS: BP 117/75
[2018-05-03] MEDS ORDERED: DOCUSATE 100 MG CAPSULE PO PRN (03:00)
[2018-05-03] MEDS ORDERED: BISACODYL 10 MG SUPP PR PRN (03:00)
[2018-05-03] MEDS ORDERED: morphine SULFATE 10 MG/ML, 1ML IVPush PRN (03:00)
[2018-05-03] MEDS ORDERED: ACETAMINOPHEN 325 MG TABLET PO PRN (03:00)
[2018-05-03] MEDS ORDERED: ONDANSETRON ODT 4 MG PO PRN (03:00)
[2018-05-03] MEDS ORDERED: OXYcodone IR 5MG TABLET PO PRN (03:00)
[2018-05-03] MEDS ORDERED: PROMETHAZINE 25 MG/ML, 1ML IM PRN (03:00)
[2018-05-03] MEDS ORDERED: ONDANSETRON 2MG/ML, 2ML IVPush PRN (03:00)
[2018-05-03] MEDS ORDERED: CEFTRIAXONE PMX 1GM/50ML 50 ML IV ONE (03:00)
[2018-05-03] MEDS ORDERED: LABETALOL 5 MG/ML SYRINGE IVPush PRN (03:00)
[2018-05-03] MEDS ORDERED: POLYETHYLENE GLYCOL 17 GM PACKET PO PRN (03:00)
[2018-05-03] MEDS ORDERED: hydrALAzine 20 MG/ML, 1ML IVPush PRN (03:00)
[2018-05-03] MEDS: SODIUM CHLORIDE 0.9% 1,000 ML IV SCH ×2 (03:12→11:42)
[2018-05-03] MEDS: METOPROLOL TARTRATE 25 MG TABLET PO/NG SCH ×4 (03:12→20:32)
[2018-05-03 03:28] LABS: FREE T4 (FREE THYROXINE) 1.09 ng/dL (0.76-1.46); THYROID STIMULATING HORMONE 0.785 mIU/L (0.358-3.740)
[2018-05-03 03:38] LABS: HEMOGLOBIN A1C 10.4 % (4.2-6.3)
[2018-05-03] MEDS: ASPIRIN 325 MG TABLET EC PO SCH (06:04)
[2018-05-03 07:26] VITALS: BP 121/82
[2018-05-03] MEDS: INSULIN LISPRO 100 UNITS/ML, PEN SQ-INSULIN SCH ×4 (07:44→20:31)
[2018-05-03] MEDS: PIOGLITAZONE 15 MG TABLET PO SCH (07:45)
[2018-05-03] MEDS: PANCRELIPASE 24,000 CAPSULE.DR PO SCH ×3 (07:45→16:28)
[2018-05-03] MEDS: RAMIPRIL 2.5 MG CAPSULE PO SCH (07:45)
[2018-05-03] MEDS: CLOPIDOGREL 75 MG TABLET PO SCH (07:45)
[2018-05-03] MEDS: HEPARIN 5,000 UNITS/ML, 1ML SQ SCH ×2 (07:45→16:28)
[2018-05-03] MEDS: DOXYCYCLINE 100MG TABLET PO SCH ×2 (07:46→20:32)
[2018-05-03] MEDS: EZETIMIBE 10 MG TABLET PO SCH (07:46)
[2018-05-03] MEDS: BENZONATATE 100 MG CAPSULE PO SCH ×3 (10:38→20:32)
[2018-05-03 13:07] VITALS: BP 101/66
[2018-05-03] MEDS ORDERED: OMNIPAQUE 350 MG/ML, 75ML BOTTLE ONE (15:05)
[2018-05-03 20:00] VITALS: BP 123/76
[2018-05-03] MEDS: ATORVASTATIN 40 MG TABLET PO SCH (20:32)
[2018-05-03] MEDS: INSULIN GLARGINE 100 UNITS/ML, PEN SQ-INSULIN SCH (21:42)
[2018-05-03] MEDS: CEFTRIAXONE PMX 2GM/50ML 50 ML IV SCH (23:03)
[2018-05-04] MEDS: HEPARIN 5,000 UNITS/ML, 1ML SQ SCH ×3 (01:35→16:34)
[2018-05-04 02:44] VITALS: BP 112/74
[2018-05-04 05:28] LABS: ALBUMIN 2.9 g/dL (3.4-5.0); ANION GAP 7 mmol/L (5-15); CALCIUM 7.8 mg/dL (8.5-10.1); CHLORIDE 113 mmol/L (98-107)
[2018-05-04 05:31] LABS: ALANINE AMINOTRANSFERASE 23 U/L (12-78); ALKALINE PHOSPHATASE 75 U/L (45-117); BILIRUBIN,TOTAL 0.4 mg/dL (0.2-1.0); CHOL/HDL RATIO 2.5; CHOLESTEROL, TOTAL 113 mg/dL (140-239); CREATININE 0.56 mg/dL (0.55-1.02); HDL CHOL % 41 % (28-40); HDL CHOLESTEROL (DIRECT) 46 mg/dL (40-60); LDL CHOLESTEROL,CALCULATED 57 mg/dL (54-169); LDL/HDL RATIO 1.2 (0.5-3.0); TOTAL PROTEIN 6.8 g/dL (6.4-8.2); TRIGLYCERIDES 52 mg/dL (50-200); VLDL CHOLESTEROL 10 mg/dL (0-25)
[2018-05-04] MEDS: ASPIRIN 325 MG TABLET EC PO SCH (05:50)
[2018-05-04 06:04] LABS: MEAN CORPUSCULAR HEMOGLOBIN 29.2 pg (27.0-34.8); MEAN CORPUSCULAR HGB CONC 32.8 g/dL (32.4-35.8); MEAN PLATELET VOLUME 9.5 fL (7.4-10.4); PLATELET COUNT 206 x10^3/uL (130-400); RED BLOOD COUNT 4.41 x10^6/uL (3.82-5.3); RED CELL DISTRIBUTION WIDTH 13.7 % (9.6-15.2)
[2018-05-04 06:51] LABS: MD YES
[2018-05-04 06:53] LABS: BANDS%(MANUAL) 2 % (0-7); EOS% (MANUAL) 4 % (1-7); LYMPH#(MANUAL) 1.79 x10^3/uL (1-3.4); LYMPHS% (MANUAL) 35 % (22-44); MONOS#(MANUAL) 1.07 x10^3/uL (0.3-2.7); MONOS% (MANUAL) 21 % (2-9); SEG#(MANUAL) 1.94 x10^3/uL (1.8-6.8); SEGS% (MANUAL) 38 % (42-75)
[2018-05-04 06:54] LABS: <PLATELET ESTIMATE> ADEQUATE; <PLT MORPHOLOGY> NORMAL PLT MORPH; <RBC MORPHOLOGY> NORMAL
[2018-05-04] MEDS: INSULIN LISPRO 100 UNITS/ML, PEN SQ-INSULIN SCH ×5 (07:00→21:51)
[2018-05-04] MEDS: PIOGLITAZONE 15 MG TABLET PO SCH (08:10)
[2018-05-04] MEDS: METOPROLOL TARTRATE 25 MG TABLET PO/NG SCH ×3 (08:10→21:50)
[2018-05-04] MEDS: CLOPIDOGREL 75 MG TABLET PO SCH (08:10)
[2018-05-04] MEDS: DOXYCYCLINE 100MG TABLET PO SCH ×2 (08:10→21:49)
[2018-05-04] MEDS: RAMIPRIL 2.5 MG CAPSULE PO SCH (08:10)
[2018-05-04] MEDS: EZETIMIBE 10 MG TABLET PO SCH (08:10)
[2018-05-04] MEDS: PANCRELIPASE 24,000 CAPSULE.DR PO SCH ×3 (08:10→16:33)
[2018-05-04] MEDS: BENZONATATE 100 MG CAPSULE PO SCH ×3 (08:10→21:50)
[2018-05-04 08:15] VITALS: BP 103/70
[2018-05-04] MEDS ORDERED: POTASSIUM CHLORIDE 20 MEQ TAB.ER.PRT PO ONE (12:00)
[2018-05-04 14:53] VITALS: BP 109/56
[2018-05-04 20:23] VITALS: BP 103/60
[2018-05-04] MEDS: ATORVASTATIN 40 MG TABLET PO SCH (21:49)
[2018-05-04] MEDS: INSULIN GLARGINE 100 UNITS/ML, PEN SQ-INSULIN SCH (21:51)
[2018-05-04] MEDS: CEFTRIAXONE PMX 2GM/50ML 50 ML IV SCH (21:52)
[2018-05-05] MEDS: HEPARIN 5,000 UNITS/ML, 1ML SQ SCH ×3 (01:04→17:29)
[2018-05-05 01:46] VITALS: BP 102/60
[2018-05-05] MEDS: ASPIRIN 325 MG TABLET EC PO SCH (06:16)
[2018-05-05] MEDS: INSULIN LISPRO 100 UNITS/ML, PEN SQ-INSULIN SCH ×4 (07:00→20:50)
[2018-05-05] MEDS: METOPROLOL TARTRATE 25 MG TABLET PO/NG SCH ×3 (08:27→20:44)
[2018-05-05] MEDS: DOXYCYCLINE 100MG TABLET PO SCH ×2 (08:27→20:47)
[2018-05-05] MEDS: CLOPIDOGREL 75 MG TABLET PO SCH (08:27)
[2018-05-05] MEDS: BENZONATATE 100 MG CAPSULE PO SCH ×3 (08:27→20:47)
[2018-05-05] MEDS: PIOGLITAZONE 15 MG TABLET PO SCH (08:27)
[2018-05-05] MEDS: PANCRELIPASE 24,000 CAPSULE.DR PO SCH ×3 (08:27→17:29)
[2018-05-05] MEDS: RAMIPRIL 2.5 MG CAPSULE PO SCH (08:27)
[2018-05-05] MEDS: EZETIMIBE 10 MG TABLET PO SCH (08:27)
[2018-05-05 09:20] VITALS: BP 83/53
[2018-05-05] MEDS: NS + 20MEQ KCL 1,000 ML IV SCH ×2 (12:29→22:44)
[2018-05-05 12:52] VITALS: BP 82/50
[2018-05-05] MEDS ORDERED: SODIUM CHLORIDE 0.9%, 500ML IVBOLUS ONE (14:00)
[2018-05-05 16:45] VITALS: BP 97/67
[2018-05-05 17:15] LABS: ANION GAP 7 mmol/L (5-15); CALCIUM 7.6 mg/dL (8.5-10.1); CHLORIDE 113 mmol/L (98-107); CREATININE 0.82 mg/dL (0.55-1.02)
[2018-05-05 17:16] LABS: BASOPHILS # (AUTO) 0.03 x10^3/uL (0-0.1); BASOPHILS % (AUTO) 1 % (0-1); EOSINOPHILS # (AUTO) 0.28 x10^3/uL (0-0.4); EOSINOPHILS % (AUTO) 6 % (1-7); LYMPHOCYTES # (AUTO) 2.05 x10^3/uL (1-3.4); LYMPHOCYTES % (AUTO) 44 % (22-44); MD NO; MEAN CORPUSCULAR HEMOGLOBIN 29.5 pg (27.0-34.8); MEAN CORPUSCULAR HGB CONC 33.1 g/dL (32.4-35.8); MEAN CORPUSCULAR VOLUME 89.1 fL (80-100); MEAN PLATELET VOLUME 9.6 fL (7.4-10.4); MONOCYTES # (AUTO) 0.68 x10^3/uL (0.2-0.8); MONOCYTES % (AUTO) 15 % (2-9); NEUTROPHILS # (AUTO) 1.62 x10^3/uL (1.8-6.8); NEUTROPHILS % (AUTO) 35 % (42-75); PLATELET COUNT 221 x10^3/uL (130-400); RED BLOOD COUNT 4.36 x10^6/uL (3.82-5.3); RED CELL DISTRIBUTION WIDTH 14.1 % (9.6-15.2)
[2018-05-05 19:13] VITALS: BP 92/65
[2018-05-05] MEDS: ATORVASTATIN 40 MG TABLET PO SCH (20:47)
[2018-05-05] MEDS: INSULIN GLARGINE 100 UNITS/ML, PEN SQ-INSULIN SCH (20:50)
[2018-05-05] MEDS: CEFTRIAXONE PMX 2GM/50ML 50 ML IV SCH (22:45)
[2018-05-06 01:02] VITALS: BP 117/77
[2018-05-06] MEDS: HEPARIN 5,000 UNITS/ML, 1ML SQ SCH ×3 (01:04→17:37)
[2018-05-06] MEDS: ASPIRIN 325 MG TABLET EC PO SCH (05:15)
[2018-05-06] MEDS: INSULIN LISPRO 100 UNITS/ML, PEN SQ-INSULIN SCH ×4 (07:00→21:14)
[2018-05-06 08:06] VITALS: BP 113/75
[2018-05-06] MEDS: DOXYCYCLINE 100MG TABLET PO SCH ×2 (08:19→21:13)
[2018-05-06] MEDS: PIOGLITAZONE 15 MG TABLET PO SCH (08:19)
[2018-05-06] MEDS: CLOPIDOGREL 75 MG TABLET PO SCH (08:19)
[2018-05-06] MEDS: METOPROLOL TARTRATE 25 MG TABLET PO/NG SCH ×3 (08:19→21:14)
[2018-05-06] MEDS: BENZONATATE 100 MG CAPSULE PO SCH ×3 (08:19→21:13)
[2018-05-06] MEDS: PANCRELIPASE 24,000 CAPSULE.DR PO SCH ×3 (08:19→17:37)
[2018-05-06] MEDS: EZETIMIBE 10 MG TABLET PO SCH (08:19)
[2018-05-06] MEDS ORDERED: RAMIPRIL 2.5 MG CAPSULE PO SCH (09:00)
[2018-05-06 12:49] VITALS: BP 113/79
[2018-05-06 19:54] VITALS: BP 99/63
[2018-05-06] MEDS: ATORVASTATIN 40 MG TABLET PO SCH (21:13)
[2018-05-06] MEDS: INSULIN GLARGINE 100 UNITS/ML, PEN SQ-INSULIN SCH (21:15)
[2018-05-06] MEDS: CEFTRIAXONE PMX 2GM/50ML 50 ML IV SCH (21:15)
[2018-05-06 21:19] VITALS: BP 107/71
[2018-05-07] MEDS: HEPARIN 5,000 UNITS/ML, 1ML SQ SCH ×2 (02:00→09:06)
[2018-05-07 04:25] VITALS: BP 96/65
[2018-05-07] MEDS: ASPIRIN 325 MG TABLET EC PO SCH (05:47)
[2018-05-07 06:43] VITALS: BP 107/66
[2018-05-07] MEDS ORDERED: CEFD300C37 PO (08:20)
[2018-05-07] MEDS ORDERED: DOXY100T10 PO (08:20)
[2018-05-07] MEDS ORDERED: BENZ-17 PO (08:20)
[2018-05-07] MEDS ORDERED: METO25TA35 PO (08:21)
[2018-05-07] MEDS: DOXYCYCLINE 100MG TABLET PO SCH (09:05)
[2018-05-07] MEDS: EZETIMIBE 10 MG TABLET PO SCH (09:05)
[2018-05-07] MEDS: BENZONATATE 100 MG CAPSULE PO SCH (09:05)
[2018-05-07] MEDS: INSULIN LISPRO 100 UNITS/ML, PEN SQ-INSULIN SCH ×2 (09:05→11:41)
[2018-05-07] MEDS: PIOGLITAZONE 15 MG TABLET PO SCH (09:05)
[2018-05-07] MEDS: CLOPIDOGREL 75 MG TABLET PO SCH (09:05)
[2018-05-07] MEDS: METOPROLOL TARTRATE 25 MG TABLET PO/NG SCH (09:06)
[2018-05-07] MEDS: PANCRELIPASE 24,000 CAPSULE.DR PO SCH ×2 (09:13→12:16)
== END 2018-05-07 14:30 | disposition home or self-care (01) | DRG 871 ==
LOC: ED 22:26 → EDIP 05-03 00:16 → 4WST 05-03 01:36 → DCLOUNGE 05-07 14:22
PROVIDERS: ADMIT Internal Medicine; ATTEND Internal Medicine
DX: A41.9 Sepsis, unspecified organism (principal); J18.9 Pneumonia, unspecified organism; E11.65 Type 2 diabetes mellitus with hyperglycemia; E78.5 Hyperlipidemia, unspecified; E86.0 Dehydration; I10 Essential (primary) hypertension; R91.1 Solitary pulmonary nodule; I25.10 Atherosclerotic heart disease of native coronary artery without angina pectoris; I25.2 Old myocardial infarction; Z82.49 Family history of ischemic heart disease and other diseases of the circulatory system; Z83.3 Family history of diabetes mellitus; Z95.1 Presence of aortocoronary bypass graft; Z95.5 Presence of coronary angioplasty implant and graft; Z79.82 Long term (current) use of aspirin; Z79.899 Other long term (current) drug therapy; Z79.4 Long term (current) use of insulin
CPT/HCPCS: 0399T; 36415; 71045; 71260; 80048; 80053; 80061; 81003; 82040; 82947; 82962; 83036; 83605; 83735; 84439; 84443; 84484; 85025; 85379; 87040; 87081; 87400; 87880; 93005; 93306; 99285; G0378; J0696; J1644; J3480; Q9967; J1815; J7030; J7040

== ENCOUNTER 2018-05-20 14:39 | Emergency (ER) | payer MEDICAID ==
[~2018-05-20] VITALS: Ht 149.9 cm; Wt 59.9 kg
[~2018-05-20 14:39] MED LIST changes: +BENZ-17 PO; +CEFD300C37 PO; +DOXY100T10 PO; +EZET10TA18 PO; +INSU100V34 SC; +RAMI2.5C2 PO
[2018-05-20] MEDS ORDERED: ALBUTEROL/IPRATROPIUM 2.5MG/0.5MG, 3 ML ONE (15:10)
[2018-05-20] MEDS ORDERED: ALBUTEROL/IPRATROPIUM 2.5MG/0.5MG, 3 ML NPPB ONE (15:30)
[2018-05-20 15:56] VITALS: BP 141/92
[2018-05-20 16:02] LABS: BASOPHILS # (AUTO) 0.06 x10^3/uL (0-0.1); BASOPHILS % (AUTO) 1 % (0-1); EOSINOPHILS # (AUTO) 0.39 x10^3/uL (0-0.4); EOSINOPHILS % (AUTO) 4 % (1-7); LYMPHOCYTES # (AUTO) 3.07 x10^3/uL (1-3.4); LYMPHOCYTES % (AUTO) 34 % (22-44); MD NO; MEAN CORPUSCULAR HEMOGLOBIN 29.8 pg (27.0-34.8); MEAN CORPUSCULAR HGB CONC 33.3 g/dL (32.4-35.8); MEAN CORPUSCULAR VOLUME 89.3 fL (80-100); MEAN PLATELET VOLUME 9.2 fL (7.4-10.4); MONOCYTES # (AUTO) 1.14 x10^3/uL (0.2-0.8); MONOCYTES % (AUTO) 13 % (2-9); NEUTROPHILS # (AUTO) 4.47 x10^3/uL (1.8-6.8); NEUTROPHILS % (AUTO) 49 % (42-75); PLATELET COUNT 315 x10^3/uL (130-400); RED BLOOD COUNT 4.85 x10^6/uL (3.82-5.3); RED CELL DISTRIBUTION WIDTH 13.4 % (9.6-15.2)
[2018-05-20 16:12] LABS: ALBUMIN 3.8 g/dL (3.4-5.0); ANION GAP 5 mmol/L (5-15); CALCIUM 8.8 mg/dL (8.5-10.1); CHLORIDE 110 mmol/L (98-107); CREATININE 0.74 mg/dL (0.55-1.02)
--- NOTE | 2018-05-20 16:42 | NUR ---
Patient/Caregiver given discharge instructions and they have confirmed that they understand the instructions. Patient ambulatory with steady gait. PT LEFT WITH ALL PERSONAL BELONGINGS.
== END 2018-05-20 16:43 | disposition home or self-care (01) ==
LOC: ED 15:54
DX: J20.8 Acute bronchitis due to other specified organisms (principal); I10 Essential (primary) hypertension; E11.9 Type 2 diabetes mellitus without complications; I25.10 Atherosclerotic heart disease of native coronary artery without angina pectoris; I25.2 Old myocardial infarction
CPT/HCPCS: 36415; 71046; 80048; 82040; 83605; 84145; 85025; 87040; 94640; 99284; J7620

== ENCOUNTER 2019-03-20 17:49 | Inpatient (IN) | payer MEDICAID ==
[~2019-03-20] VITALS: Ht 142.2 cm; Wt 61.9 kg
[~2019-03-20 17:49] MED LIST changes: -DOXY100T10 PO; +DOXY100T23 PO; -EZET10TA18 PO; +EZET10TA70 PO; -HYDR-3307 PO; +HYDR-36 PO
[2019-03-20] MEDS ORDERED: ALBUTEROL/IPRATROPIUM 2.5MG/0.5MG, 3 ML NPPB ONE (18:30)
[2019-03-20 18:33] LABS: BASOPHILS # (AUTO) 0.01 x10^3/uL (0-0.1); BASOPHILS % (AUTO) 0 % (0-1); EOSINOPHILS # (AUTO) 0.19 x10^3/uL (0-0.4); EOSINOPHILS % (AUTO) 1 % (1-7); LYMPHOCYTES # (AUTO) 2.35 x10^3/uL (1-3.4); LYMPHOCYTES % (AUTO) 17 % (22-44); MD NO; MEAN CORPUSCULAR HEMOGLOBIN 29.6 pg (27.0-34.8); MEAN CORPUSCULAR HGB CONC 33.3 g/dL (32.4-35.8); MEAN PLATELET VOLUME 10.4 fL (7.4-10.4); MONOCYTES # (AUTO) 1.32 x10^3/uL (0.2-0.8); MONOCYTES % (AUTO) 10 % (2-9); NEUTROPHILS # (AUTO) 9.98 x10^3/uL (1.8-6.8); NEUTROPHILS % (AUTO) 72 % (42-75); PLATELET COUNT 232 x10^3/uL (130-400); RED BLOOD COUNT 5.12 x10^6/uL (3.82-5.3); RED CELL DISTRIBUTION WIDTH 13.2 % (9.6-15.2)
[2019-03-20 18:45] LABS: ALBUMIN 3.4 g/dL (3.4-5.0); ANION GAP 10 mmol/L (5-15); CALCIUM 8.4 mg/dL (8.5-10.1); CHLORIDE 106 mmol/L (98-107); CREATININE 0.92 mg/dL (0.55-1.02)
[2019-03-20] MEDS ORDERED: ALBUTEROL/IPRATROPIUM 2.5MG/0.5MG, 3 ML ONE (18:48)
[2019-03-20 19:11] LABS: RAPID INFLUENZA A Negative (Negative); RAPID INFLUENZA B Negative (Negative)
--- NOTE | 2019-03-20 19:26 | NUR ---
IV STARTED, ORDERED IV FLUIDS STARTED. PT COUGHING CONSTANTLY. ERP AWARE, ORDERS TO BE PLACED. FAMILY AT BEDSIDE. EKG DONE FOR PT ELEVATED HR.
[2019-03-20] MEDS ORDERED: SODIUM CHLORIDE 0.9%, 500ML IVBOLUS ONE (19:30)
[2019-03-20] MEDS ORDERED: SODIUM CHLORIDE 0.9% 1,000ML IVBOLUS ONE (20:30)
[2019-03-20] MEDS ORDERED: ACETAMINOPHEN 500 MG TABLET PO ONE (20:30)
[2019-03-20] MEDS ORDERED: BENZONATATE 100 MG CAPSULE PO ONE (20:30)
[2019-03-20] MEDS ORDERED: ACETAMINOPHEN 500 MG TABLET ONE (20:35)
[2019-03-20] MEDS ORDERED: BENZONATATE 100 MG CAPSULE ONE (20:36)
--- NOTE | 2019-03-20 20:47 | NUR ---
PT MEDICATED WITH ORDERED MEDS PER EMAR FOR COUGH AND FEVER. NO IMPROVEMENT IN HR WITH FIRST NS BOLUS, SEE CHARTED VITALS.
[2019-03-20] MEDS ORDERED: CEFTRIAXONE PMX 1GM/50ML 50 ML IVPB ONE (21:00)
[2019-03-20] MEDS ORDERED: AZITHROMYCIN 500 MG in SODIUM CHLORIDE 0.9% 250 ML IV ONE (21:00)
[2019-03-20] MEDS ORDERED: CEFTRIAXONE PMX 1GM/50ML 50 ML ONE (21:24)
--- NOTE | 2019-03-20 21:34 | NUR ---
BLOOD CULTURES DRAWN, FIRST ABX STARTED. ERP HAS BEEN IN TO SEE PT. PT TO BE AN ADMIT. PT IS AWARE. PT FAMILY AT BEDSIDE. CALL LIGHT WITHIN REACH. WILL CONTINUE TO MONITOR.
--- NOTE | 2019-03-20 22:19 | NUR ---
LAB IN AT THIS TIME TO DRAW BLOOD. HOSPITALIST HAS BEEN IN TO SEE PT. PT COUNTINUES TO COUGH. NO STATED NEEDS FROM PT. WILL CONTINUE TO MONITOR. SECOND IV ABX STARTED.
[2019-03-20] MEDS ORDERED: METOPROLOL TARTRATE 25 MG TABLET PO SCH (22:30)
[2019-03-20] MEDS ORDERED: ACETAMINOPHEN 325 MG TABLET PO PRN (22:30)
[2019-03-20] MEDS ORDERED: OXYcodone IR 5MG TABLET PO PRN (22:30)
[2019-03-20] MEDS ORDERED: ONDANSETRON 2MG/ML, 2ML IVPush PRN (22:30)
[2019-03-20] MEDS ORDERED: POLYETHYLENE GLYCOL 17 GM PACKET PO PRN (22:30)
[2019-03-20] MEDS ORDERED: hydrALAzine 20 MG/ML, 1ML IVPush PRN (22:30)
[2019-03-20] MEDS ORDERED: ATORVASTATIN 40 MG TABLET PO SCH (22:30)
[2019-03-20] MEDS ORDERED: ENOXAPARIN 40 MG/0.4 ML SQ SCH (22:30)
[2019-03-20] MEDS ORDERED: morphine SULFATE 10 MG/ML, 1ML IVPush PRN (22:30)
[2019-03-20] MEDS ORDERED: metFORMIN 500 MG TABLET PO SCH (22:30)
[2019-03-20] MEDS ORDERED: INSULIN GLARGINE 100 UNITS/ML, PEN SQ-INSULIN SCH (22:30)
[2019-03-20] MEDS ORDERED: BISACODYL 10 MG SUPP PR PRN (22:30)
[2019-03-20] MEDS: CREON 3000 UNIT PO SCH (22:30)
[2019-03-20] MEDS ORDERED: ONDANSETRON ODT 4 MG PO PRN (22:30)
[2019-03-20] MEDS ORDERED: DOCUSATE 100 MG CAPSULE PO PRN (22:30)
[2019-03-20] MEDS ORDERED: PROMETHAZINE 25 MG/ML, 1ML IM PRN (22:30)
[2019-03-20 22:48] LABS: FREE T4 (FREE THYROXINE) 1.16 ng/dL (0.76-1.46); TROPONIN I < 0.015 ng/mL (0.000-0.045)
--- NOTE | 2019-03-20 23:13 | NUR ---
ASSISTED PT TO THE BATHROOM. PT REQUIRING ONE PERSON ASSIST WHEN UP. PT BACK IN BED, VITALS MONITORS HOOKED BACK UP. PT SON AT BEDSIDE.
--- NOTE | 2019-03-20 23:31 | NUR ---
REPORT TO ABRAN AMATO.
[2019-03-20 23:51] VITALS: BP 125/77
[2019-03-21] MEDS: SODIUM CHLORIDE 0.9% 1,000 ML IV SCH ×2 (00:48→08:06)
[2019-03-21] MEDS: INSULIN LISPRO 100 UNITS/ML, PEN SQ-INSULIN SCH ×3 (02:32→11:12)
[2019-03-21 03:59] VITALS: BP 125/77
[2019-03-21 06:44] LABS: BASOPHILS # (AUTO) 0.06 x10^3/uL (0-0.1); BASOPHILS % (AUTO) 1 % (0-1); EOSINOPHILS # (AUTO) 0.26 x10^3/uL (0-0.4); EOSINOPHILS % (AUTO) 2 % (1-7); LYMPHOCYTES # (AUTO) 1.99 x10^3/uL (1-3.4); LYMPHOCYTES % (AUTO) 16 % (22-44); MD NO; MEAN CORPUSCULAR HEMOGLOBIN 29.3 pg (27.0-34.8); MEAN CORPUSCULAR HGB CONC 32.7 g/dL (32.4-35.8); MEAN CORPUSCULAR VOLUME 89.5 fL (80-100); MEAN PLATELET VOLUME 10.2 fL (7.4-10.4); MONOCYTES # (AUTO) 1.36 x10^3/uL (0.2-0.8); MONOCYTES % (AUTO) 11 % (2-9); NEUTROPHILS # (AUTO) 9.03 x10^3/uL (1.8-6.8); NEUTROPHILS % (AUTO) 71 % (42-75); PLATELET COUNT 212 x10^3/uL (130-400); RED BLOOD COUNT 4.58 x10^6/uL (3.82-5.3); RED CELL DISTRIBUTION WIDTH 13.2 % (9.6-15.2)
[2019-03-21 06:57] LABS: CHLORIDE 111 mmol/L (98-107)
[2019-03-21 07:03] LABS: ALANINE AMINOTRANSFERASE 15 U/L (12-78); ALBUMIN 2.8 g/dL (3.4-5.0); ALKALINE PHOSPHATASE 90 U/L (45-117); ANION GAP 8 mmol/L (5-15); BILIRUBIN,TOTAL 0.9 mg/dL (0.2-1.0); CALCIUM 7.5 mg/dL (8.5-10.1); CHOL/HDL RATIO 4.1; CHOLESTEROL, TOTAL 173 mg/dL (140-239); CREATININE 0.61 mg/dL (0.55-1.02); HDL CHOL % 24 % (28-40); HDL CHOLESTEROL (DIRECT) 42 mg/dL (40-60); LDL CHOLESTEROL,CALCULATED 108 mg/dL (54-169); LDL/HDL RATIO 2.6 (0.5-3.0); TOTAL PROTEIN 6.5 g/dL (6.4-8.2); TRIGLYCERIDES 114 mg/dL (50-200); VLDL CHOLESTEROL 23 mg/dL (0-25)
[2019-03-21 07:21] VITALS: BP 106/69
[2019-03-21] MEDS ORDERED: ACETAMINOPHEN 325 MG TABLET PO PRN (07:30)
[2019-03-21] MEDS: CREON 3000 UNIT PO SCH ×2 (08:00→12:00)
[2019-03-21] MEDS ORDERED: ASPIRIN 325 MG TABLET EC PO SCH (09:00)
[2019-03-21] MEDS ORDERED: EZETIMIBE 10 MG TABLET PO SCH (09:00)
[2019-03-21] MEDS ORDERED: PIOGLITAZONE 15 MG TABLET PO SCH (09:00)
[2019-03-21] MEDS ORDERED: CLOPIDOGREL 75 MG TABLET PO SCH (09:00)
[2019-03-21] MEDS ORDERED: metFORMIN 850 MG TABLET PO SCH (09:00)
[2019-03-21] MEDS ORDERED: DOXY100C2 PO (11:22)
[2019-03-21] MEDS ORDERED: INSU100I13 SQ-INSULIN (11:22)
[2019-03-21] MEDS ORDERED: METF850T PO (11:22)
[2019-03-21] MEDS ORDERED: CARV3.1212 PO (11:22)
[2019-03-21] MEDS ORDERED: AMOX-291 PO (11:22)
[2019-03-21] MEDS ORDERED: CARVEDILOL 3.125 MG TABLET PO SCH (18:00)
[2019-03-21] MEDS ORDERED: AZITHROMYCIN 500 MG TABLET PO SCH (21:00)
[2019-03-21] MEDS ORDERED: INSULIN GLARGINE 100 UNITS/ML, PEN SQ-INSULIN SCH (21:00)
[2019-03-21] MEDS ORDERED: CEFTRIAXONE PMX 2GM/50ML 50 ML IV SCH (21:00)
== END 2019-03-21 13:10 | disposition home or self-care (01) | DRG 871 ==
LOC: ED 19:54 → EDIP 21:24 → 3N 23:45 → DCLOUNGE 03-21 13:05
PROVIDERS: ADMIT Internal Medicine; ATTEND Internal Medicine
DX: A41.9 Sepsis, unspecified organism (principal); J96.00 Acute respiratory failure, unspecified whether with hypoxia or hypercapnia; I50.22 Chronic systolic (congestive) heart failure; J45.901 Unspecified asthma with (acute) exacerbation; E11.65 Type 2 diabetes mellitus with hyperglycemia; E66.9 Obesity, unspecified; Z68.30 Body mass index [BMI] 30.0-30.9, adult; Z88.8 Allergy status to other drugs, medicaments and biological substances; E78.5 Hyperlipidemia, unspecified; E87.6 Hypokalemia; I11.0 Hypertensive heart disease with heart failure; I25.10 Atherosclerotic heart disease of native coronary artery without angina pectoris; I25.2 Old myocardial infarction; J98.4 Other disorders of lung; R65.20 Severe sepsis without septic shock; Z82.49 Family history of ischemic heart disease and other diseases of the circulatory system; Z83.3 Family history of diabetes mellitus; Z95.1 Presence of aortocoronary bypass graft; Z95.5 Presence of coronary angioplasty implant and graft
CPT/HCPCS: 36415; 87400; J7620; 71046; 80048; 80053; 80061; 82040; 82962; 83036; 83605; 83735; 84439; 84443; 84484; 85025; 87040; 93005; 94640; 96360; 96361; 99285; G0378; J0456; J0696; J1650; J1815; J7030; J7040; J7050

== ENCOUNTER 2019-05-29 18:32 | Emergency (ER) | payer MEDICAID ==
[~2019-05-29] VITALS: Ht 142.2 cm; Wt 62.0 kg
[~2019-05-29 18:32] MED LIST changes: +AMOX-291 PO; +CARV3.1212 PO; +DOXY100C2 PO; +INSU100I13 SQ-INSULIN; +INSU100I34 SC; +METF850T PO; -PIOG15TA4 PO; +PIOG15TA69 PO
[2019-05-29 18:35] VITALS: BP 135/78
--- NOTE | 2019-05-29 18:59 | NUR ---
HEAD WRESTLING COACH: PT TO ROOM FROM LOBBY
[2019-05-29 19:15] LABS: BASOPHILS # (AUTO) 0.12 x10^3/uL (0-0.1); BASOPHILS % (AUTO) 1 % (0-1); EOSINOPHILS # (AUTO) 0.15 x10^3/uL (0-0.4); EOSINOPHILS % (AUTO) 2 % (1-7); LYMPHOCYTES # (AUTO) 2.81 x10^3/uL (1-3.4); LYMPHOCYTES % (AUTO) 29 % (22-44); MD NO; MEAN CORPUSCULAR HEMOGLOBIN 29.7 pg (27.0-34.8); MEAN CORPUSCULAR HGB CONC 33.3 g/dL (32.4-35.8); MEAN CORPUSCULAR VOLUME 89.1 fL (80-100); MEAN PLATELET VOLUME 10.4 fL (7.4-10.4); MONOCYTES # (AUTO) 0.78 x10^3/uL (0.2-0.8); MONOCYTES % (AUTO) 8 % (2-9); NEUTROPHILS # (AUTO) 5.89 x10^3/uL (1.8-6.8); NEUTROPHILS % (AUTO) 60 % (42-75); PLATELET COUNT 265 x10^3/uL (130-400); RED BLOOD COUNT 5.38 x10^6/uL (3.82-5.3); RED CELL DISTRIBUTION WIDTH 13.4 % (9.6-15.2)
[2019-05-29 19:21] LABS: ALANINE AMINOTRANSFERASE 22 U/L (12-78); ALBUMIN 3.8 g/dL (3.4-5.0); ANION GAP 9 mmol/L (5-15); CALCIUM 8.9 mg/dL (8.5-10.1); CHLORIDE 105 mmol/L (98-107)
[2019-05-29 19:24] LABS: ALKALINE PHOSPHATASE 115 U/L (45-117); TOTAL PROTEIN 8.3 g/dL (6.4-8.2)
== END 2019-05-29 20:30 | disposition home or self-care (01) ==
LOC: ED 19:32
DX: K64.8 Other hemorrhoids (principal); I10 Essential (primary) hypertension; I25.10 Atherosclerotic heart disease of native coronary artery without angina pectoris; E11.9 Type 2 diabetes mellitus without complications; I25.2 Old myocardial infarction; J45.909 Unspecified asthma, uncomplicated; Z95.0 Presence of cardiac pacemaker
CPT/HCPCS: 36415; 80053; 85025; 99283

== ENCOUNTER → 2019-06-11 | Outpatient (CLI) | payer MEDICAID | END | disposition home or self-care (01) | LOC: CFH 08:38 | PROVIDERS: ATTEND Internal Medicine Cardiovascular Disease | DX: I10 Essential (primary) hypertension (principal); R07.9 Chest pain, unspecified | CPT/HCPCS: 78452; 93017; A9502 ==

== ENCOUNTER 2020-11-02 17:17 | Emergency (ER) | payer MEDICAID ==
[~2020-11-02] VITALS: Ht 147.3 cm; Wt 59.3 kg
[~2020-11-02 17:17] MED LIST changes: +HYDR-3248 PO; -HYDR-36 PO; -RAMI2.5C2 PO; +RAMI2.5C49 PO
[2020-11-02] MEDS ORDERED: SODIUM CHLORIDE 0.9% 1,000ML IVBOLUS ONE (18:00)
[2020-11-02] MEDS ORDERED: SODIUM CHLORIDE FLUSH 10ML SYR IVF ONE (18:00)
[2020-11-02 18:28] LABS: BASOPHILS % (AUTO) 1 % (0-1); EOSINOPHILS % (AUTO) 2 % (1-7); LYMPHOCYTES % (AUTO) 17 % (22-44); MEAN CORPUSCULAR HEMOGLOBIN 30.1 pg (27.0-34.8); MEAN CORPUSCULAR HGB CONC 33.6 g/dL (32.4-35.8); MEAN PLATELET VOLUME 9.9 fL (7.4-10.4); MONOCYTES % (AUTO) 18 % (2-9); NEUTROPHILS % (AUTO) 62 % (42-75); PLATELET COUNT 270 x10^3/uL (130-400); RED BLOOD COUNT 5.22 x10^6/uL (3.82-5.3); RED CELL DISTRIBUTION WIDTH 13.2 % (9.6-15.2)
[2020-11-02 18:32] LABS: ALBUMIN 3.5 g/dL (3.4-5.0); ANION GAP 9 mmol/L (5-15); CALCIUM 8.9 mg/dL (8.5-10.1); CHLORIDE 104 mmol/L (98-107); CREATININE 1.15 mg/dL (0.55-1.02)
--- NOTE | 2020-11-02 18:56 | NUR ---
REPORT FROM JOVANI AMATO
[2020-11-02 18:57] LABS: MICROSCOPIC NOT IND
[2020-11-02 19:03] LABS: ACETONE, SERUM Small (20mg/dL) (Negative)
[2020-11-02 19:07] LABS: TROPONIN I < 0.015 ng/mL (0.000-0.045)
--- NOTE | 2020-11-02 20:43 | NUR ---
PATIENT AMBULATES THE HALLWAY WITHOUT ASSISTANCE, PATIENT DENIES SOB, DIZZINES, OR ANY OTHER ISSUES WITH AMBULATION. PATIENT VERBALIZES THAT SHE FEELS WELL ENOUGH TO GO HOME, MD NOTIFIED. PATIENT IN BATHROOM.
[2020-11-02 20:44] VITALS: BP 142/81
== END 2020-11-02 21:11 | disposition home or self-care (01) ==
LOC: ED 17:47
DX: U07.1 COVID-19 (principal); R07.9 Chest pain, unspecified; R06.00 Dyspnea, unspecified; R00.0 Tachycardia, unspecified; I10 Essential (primary) hypertension; E11.9 Type 2 diabetes mellitus without complications; I25.2 Old myocardial infarction; I25.10 Atherosclerotic heart disease of native coronary artery without angina pectoris
CPT/HCPCS: 71045; 80048; 81003; 82010; 82040; 82803; 82962; 84484; 84703; 85025; 85379; 93005; 96360; 99285; J7030; U0003; U0005

== ENCOUNTER 2020-11-05 13:59 | Emergency (ER) | payer MEDICAID ==
[~2020-11-05] VITALS: Ht 142.2 cm; Wt 57.9 kg
--- NOTE | 2020-11-05 14:20 | NUR ---
PATIENT WALKED BACK FROM TRIAGE WITH CHIEF C/O COVID +, PATIENT GOT HER RESULTS YESTERDAY. PATIENT REPORTS COUGH AND SOB, AND GENERALIZED BODY ACHES. NADN, CONNECTED TO MONITOR, VSS, CALL LIGHT WITHIN REACH.
[2020-11-05] MEDS ORDERED: CASIRIVIMAB 600 MG, IMDEVIMAB (REGN10987) 600 MG in SODIUM CHLORIDE 0.9% 250 ML IVPB ONE (15:00)
[2020-11-05] MEDS ORDERED: SODIUM CHLORIDE FLUSH 10ML SYR IVF ONE (15:00)
[2020-11-05] MEDS ORDERED: FILTER 0.22 MICRON IV ONE (15:00)
--- NOTE | 2020-11-05 15:50 | NUR ---
LATE ENTRY DUE TO PATIENT CARE: PATIENT CALLED RN INTO ROOM, STATES THAT HER PALMS ARE "REALLY SWEATY AND I FEEL REALLY WEIRD AND WOOZY." REGNERON INFUSION STOPPED, SPOKE WITH BENITO IN PHARMACY. PER BENITO, GIVE PO BENADRYL AND WAIT 30 MINUTES BEFORE STARTING INFUSION AGAIN. WHEN INFUSION RESTARTED START IT AT HALF THE RATE AND IF SYMPTOMS RETURN THEN STOP INFUSION. IF SYMPTOMS DO NOT RETURN, INFUSION CAN CONTINUE UNTIL MEDICATION IS GONE. ERMD NOTIFIED, PATIENT MEDICATED WITH BENADRYL.
[2020-11-05] MEDS ORDERED: DIPHENHYDRAMINE 25 MG CAPSULE PO ONE (16:00)
[2020-11-05] MEDS ORDERED: DIPHENHYDRAMINE 25 MG CAPSULE ONE (16:03)
--- NOTE | 2020-11-05 16:40 | NUR ---
REGENERON INFUSION RESTARTED AT 1/2 THE INFUSION RATE PER PHARMACIST, INFUSION GOING AT 130 mLS PER HOUR, VSS, NADN, PATIENT EDUCATED ON CALLING RN IF SYMPTOMS RETURN, CALL LIGHT WITHIN REACH.
--- NOTE | 2020-11-05 17:27 | NUR ---
PATIENT TOLERATING INFUSION AT SLOWER RATE WELL, GERARDO, VSS, 30 MINUTES LEFT ON INFUSION. CALL LIGHT WITHIN REACH, NO FURTHER NEEDS AT THIS TIME.
--- NOTE | 2020-11-05 18:04 | NUR ---
REGENERON INFUSION COMPLETE, PATIENT TOLERATED WELL, VSS, CALL LIGHT WITHIN REACH. PATIENT TO BE WATCHED FOR 1 HOUR FOR SIDE EFFECTS.
[2020-11-05 19:35] VITALS: BP 136/75
--- NOTE | 2020-11-05 19:35 | NUR ---
PATIENT CLEARED FOR DISCHARGE. NO NOTED ADDITIONAL NEEDS AT THIS TIME. PATIENT VERBALIZED UNDERSTANDING OF SELF CARE AND FOLLOW UP CARE. VSS. NO ACUTE DISTRESS. PATIENT AMBULATORY TO DISCHARGE WITHOUT COMPLICATIONS.
== END 2020-11-05 19:38 | disposition home or self-care (01) ==
LOC: ED 14:34
DX: U07.1 COVID-19 (principal); J06.9 Acute upper respiratory infection, unspecified; I10 Essential (primary) hypertension; E11.9 Type 2 diabetes mellitus without complications; I25.2 Old myocardial infarction; I25.10 Atherosclerotic heart disease of native coronary artery without angina pectoris; J45.909 Unspecified asthma, uncomplicated
CPT/HCPCS: 99282; M0243; Q0163